=== PATIENT | male | born 1995 | race Caucasian/White ===

== ENCOUNTER 2016-11-22 19:40 | Emergency (ER) | payer OTHER ==
[~2016-11-22] VITALS: Ht 177.8 cm; Wt 68.3 kg
[~2016-11-22 19:40] MED LIST: NOHOMEMEDS
[2016-11-22 20:25] VITALS: BP 147/96
== END 2016-11-22 20:24 | disposition left against medical advice (07) ==
LOC: EME 19:40
DX: T40.1X1A Poisoning by heroin, accidental (unintentional), initial encounter (principal); F11.10 Opioid abuse, uncomplicated; F17.200 Nicotine dependence, unspecified, uncomplicated
CPT/HCPCS: 99281; 99284; J2310

== ENCOUNTER 2017-04-09 16:04 | Emergency (ER) | payer OTHER ==
[2017-04-09 16:11] VITALS: BP 00/00
== END 2017-04-09 16:11 | disposition left against medical advice (07) ==
LOC: EME → EDBD 16:04 → EME 16:04
DX: T50.901A Poisoning by unspecified drugs, medicaments and biological substances, accidental (unintentional), initial encounter (principal); Z53.21 Procedure and treatment not carried out due to patient leaving prior to being seen by health care provider
CPT/HCPCS: J2310

== ENCOUNTER 2017-05-18 05:33 | Emergency (ER) | payer OTHER ==
[~2017-05-18] VITALS: Ht 180.3 cm; Wt 69.0 kg
[2017-05-18 07:13] VITALS: BP 125/88
== END 2017-05-18 07:14 | disposition home or self-care (01) ==
LOC: EME 05:33
DX: F41.0 Panic disorder [episodic paroxysmal anxiety] (principal); F43.22 Adjustment disorder with anxiety; F32.9 Major depressive disorder, single episode, unspecified; F17.200 Nicotine dependence, unspecified, uncomplicated; Z59.0 Homelessness
CPT/HCPCS: 99281; 99283

== ENCOUNTER 2017-06-17 12:23 | Emergency (ER) | payer OTHER ==
[~2017-06-17] VITALS: Ht 177.8 cm; Wt 68.8 kg
[2017-06-17 12:32] VITALS: BP 159/93
== END 2017-06-17 12:34 | disposition left against medical advice (07) ==
LOC: EME 12:23
DX: T40.1X1A Poisoning by heroin, accidental (unintentional), initial encounter (principal); Z53.21 Procedure and treatment not carried out due to patient leaving prior to being seen by health care provider
CPT/HCPCS: 99281